=== PATIENT | female | born 1995 | race Caucasian/White ===

== ENCOUNTER 2017-10-12 16:52 | Emergency (ER) | END 2017-10-12 23:52 | disposition home or self-care (01) ==

== ENCOUNTER 2017-11-05 02:56 | Emergency (ER) | END 2017-11-05 05:07 | disposition home or self-care (01) ==

== ENCOUNTER 2018-09-03 11:51 | Day surgery (SDC) | payer BC, OTHER ==
[~2018-09-03] VITALS: Ht 149.9 cm; Wt 54.3 kg
[~2018-09-03 11:51] MED LIST: ACET500C5 PO; DICY10CA40 PO; DOCU-144 PO; FAMO-96 PO; HYDR-4011 PO; IBUP-1542 PO; ONDA4TAB8 PO; PREN-93 PO; PREN1TAB62 PO
[2018-09-03 12:26] VITALS: Ht 149.9 cm; Wt 54.3 kg
[2018-09-03] MEDS ORDERED: NO MEDS. (12:34)
[2018-09-03 12:36] VITALS: BP 104/67; PULSE 75; RESP 16
--- NOTE | 2018-09-03 13:24 | PREAC ---
Date/Time of Note Date/Time of Note DATE: 09/03/18 TIME: Anesthesia Eval and Record Evaluation Time Pre-Procedure Interview DATE: 09/03/18 TIME: :23 Age 23 Sex female NPO: 8 hrs Preoperative diagnosis abdominal pain Planned procedure colonoscopy Past Medical History Past Medical History: None Surgery & Anesthesia Issues No known issue Meds Anticoagulation: No Beta Saud within 24 hr: No Reason Beta Saud not given: Pt. not on B-Saud Reported Medications [No Meds.] No Conflict Check 09/03/18 Discontinued Reported Medications Vit-Iron Fumarate-FA ( Vitamin Tablet) 1 Each Tablet, 1 TAB PO DAILY, TAB 12/12/15 Vit-Iron Fumarate-FA ( Vitamin Tablet) 1 Each Tablet, 1 TAB PO DAILY, TAB 12/10/15 Discontinued Scripts Dicyclomine HCl (Dicyclomine HCl) 10 Mg Capsule, 1 CAP PO QID PRN for abdominal pain, #20 Prov:PASILABANSUDHEERAR F 11/05/17 Hydrocodone/Acetaminophen ([place] 5-325 Tablet) 1 Each Tablet, 1 TAB PO Q6H PRN for PAIN, #20 TAB Prov:PASILABANSUDHEERAR F 11/05/17 Docusate Sodium* (Colace*) 100 Mg Capsule, 100 MG PO DAILY PRN for CONSTIPATION, #30 CAP Prov:PASILABAN,SUDHEERAR F 11/05/17 Famotidine* (Pepcid*) 20 Mg Tablet, 20 MG PO DAILY for 30 Days, TAB Prov:PASILABAN,KLAR F 11/05/17 Ondansetron Hcl* (Zofran*) 4 Mg Tablet, 4 MG PO Q8H PRN for NAUSEA AND/OR VOMITING, #30 TAB Prov:PASILABANSUDHEERAR F 11/05/17 Ibuprofen* (Motrin*) 600 Mg Tab, 600 MG PO Q6H PRN for PAIN AND OR ELEVATED TEMP, #30 TAB Prov:PASILABANSUDHEERAR F 11/05/17 Vit No.124/Iron/FA ( Vitamin Tablet) 1 Each Tablet, 1 EACH PO DAILY, #30 TAB Prov:PASILABANSUDHEERAR F 10/12/17 Acetaminophen* (Tylophen*) 500 Mg Capsule, 1 CAP PO Q6H PRN for PAIN AND OR ELEVATED TEMP, #20 CAP Prov:PASILABAN,KLAR F 10/12/17 Meds reviewed: Yes Allergies Coded Allergies: No Known Drug Allergies (Verified Allergy, Unknown, 09/03/18) Allergies Reviewed: Yes Labs/Studies Labs Reviewed: Reviewed by anesthesiologist test: Negative Pre-procedure Exam Last vitals Vital Signs Date Temp Pulse Resp B/P (MAP) Pulse Ox O2 O2 Flow FiO2 Time Delivery Rate 09/03/18 98.9 75 16 104/67 100 Room Air 12:36 (79) Airway: Adequate mouth opening Mallampati: Mallampati II Teeth: Normal Lung: Normal Heart: Normal ASA Physical Status ASA physical status: 1 Emergency: None Planned Anesthetic General/MAC: MAC Pre-operative Attestations Prior to commencing anesthesia and surgery, the patient was re-evaluated, there was verification of: *The patient's identity *The results of appropriate recent lab work and preoperative vital signs *The above evaluation not changing prior to induction *Anesthetic plan, risk benefits, alternative and complications discussed with patient/family; questions answered; patient/family understands, accepts and wishes to proceed. YESENIA ESCOBAR Sep 03, 2018 13:24
[2018-09-03] MEDS ORDERED: LABETALOL HCL 20MG INJ IV PRN (13:30)
[2018-09-03] MEDS ORDERED: hydrALAzine 20 MG INJ IV PRN (13:30)
--- NOTE | 2018-09-03 16:21 | PAC ---
Date/Time of Note Date/Time of Note DATE: 09/03/18 TIME: 16:21 Post-Anesthesia Notes Post-Anesthesia Note Last documented vital signs Vital Signs Date Temp Pulse Resp B/P (MAP) Pulse Ox O2 O2 Flow FiO2 Time Delivery Rate 09/03/18 98 75 16 120/65 100 Room Air 1621 Activity: WNL Respiratory function: WNL Cardiovascular function: WNL Mental status: Baseline Pain reasonably controlled: Yes Hydration appropriate: Yes Nausea/Vomiting absent: Yes JAMES BENITO DO Sep 03, 2018 16:21
[2018-09-03 16:33] VITALS: BP 95/58; RESP 20
== END 2018-09-03 17:32 | disposition home or self-care (01) ==
LOC: GIL 11:51
PROVIDERS: ATTEND Internal Medicine Gastroenterology
DX: K64.8 Other hemorrhoids (principal)
CPT/HCPCS: 45380; 84703; 88305; Z7610